=== PATIENT | female | born 1965 | race African-American/Black ===

== ENCOUNTER 2020-08-03 15:40 | Emergency (ER) | payer OTHER ==
[~2020-08-03] VITALS: Ht 175.3 cm; Wt 96.2 kg
[~2020-08-03 15:40] MED LIST: CLOTRIMAZOLE 1%15 G1 TOP; COLACE100 MG PO; DUONEB 2.5-0.5 M3 ML INH; FLEXERIL PO; IBUPROFEN 800800 M1 PO; MUCINEX TA600 MG/TA2 PO; OXYCONTIN20 M1 PO; PAXIL10 MG PO; TUSSIONEX PENN473 ML PO
[2020-08-03 16:25] LABS: ABSOLUTE NEUTROPHILS 5.5 thou/uL (1.4-8.2); BASOPHILS 0.6 % (0.0-2.0); EOSINOPHILS 3.2 % (0.0-3.0); HEMATOCRIT 38.9 % (37.0-47.0); HEMOGLOBIN 12.5 gm/dL (12.0-15.0); LYMPHOCYTES 34.9 % (24.0-44.0); MCH 28.5 pg (26.0-34.0); MCHC 32.1 g/dL (28.0-37.0); MCV 88.7 fL (80.0-100.0); PLATELET COUNT 271 thou/uL (150-400); POLYS 54.3 % (36.0-66.0); RBC 4.38 mil/uL (4.20-5.00); RDW 13.3 % (10.5-14.5); WBC 10.1 thou/uL (4.0-11.0)
[2020-08-03 16:28] LABS: ANION GAP 10 mmol/L (7-16); BUN 13 mg/dL (7-18); CHLORIDE 106 mmol/L (98-107); CO2 28 mmol/L (21-32); CREATININE 1.1 mg/dL (0.6-1.0); GLUCOSE 189 mg/dL (74-106); POTASSIUM 3.5 mmol/L (3.5-5.1); SODIUM 144 mmol/L (136-145)
[2020-08-03 19:18] LABS: ALBUMIN 3.7 g/dL (3.4-5.0); MAGNESIUM 1.7 mg/dL (1.8-2.4); SGOT 63 U/L (15-37); SGPT 72 U/L (30-65); TOTAL BILIRUBIN 0.2 mg/dL (0.2-1.0); TROPONIN-I <0.06 ng/mL (<0.06)
[2020-08-03] MEDS ORDERED: DOXYCYCLINE 10100 MG PO (19:32)
[2020-08-03] MEDS ORDERED: PREDNISONE 20 M20 MG PO (19:32)
[2020-08-03] MEDS ORDERED: VENTOLIN HFA 1818 GM INH (19:32)
[2020-08-03] MEDS ORDERED: TESSALON PERLE100 MG PO (19:32)
[2020-08-03 21:30] VITALS: BP 120/76
[2020-08-04] MEDS ORDERED: JANUMET 50-1,01 EACH PO (03:18)
[2020-08-04] MEDS ORDERED: LOSARTAN POTASS50 MG PO (03:18)
[2020-08-04] MEDS ORDERED: NORTRIPTYLINE H25 M3 PO (03:19)
[2020-08-04] MEDS ORDERED: ADVAIR 100-501 EACH INH (03:20)
[2020-08-04] MEDS ORDERED: OMEPRAZOLE40 MG PO (06:11)
[2020-08-04] MEDS ORDERED: POTASSIUM20 PO (06:11)
[2020-08-04] MEDS ORDERED: TIZANIDINE4 MG/1 TA1 PO (06:12)
--- NOTE | 2020-08-04 09:37 | EKG ---
[facility] [place] [address] ELECTROCARDIOGRAM REPORT Name: BERNARDO CALDERON [id number] Admission: 08/03/20 Attend Phys: Discharge: 08/03/20 Date of : 61 Report #: [id number] THIS REPORT FOR: cc: MILAGROS - Melony family physician/PCP MILAGROS - Melony family physician/PCP Cheko Fields MD ~ THIS REPORT FOR: //name// [facility] ED Test Date: 2020-08-03 Test Time: 16:36:32 Pat Name: BERNARDO CALDERON Department: Room: Gender: Pecan Mallow Dipper: [facility] : 1965 Requested By: Robin Blevins Order Number: [id number] MD: Cheko Fields Measurements Intervals [place] Rate: 98 P: 50 IA: 142 QRS: 11 QRSD: 118 T: 33 QT: 373 QTc: 477 Interpretive Statements Sinus rhythm Probable left atrial enlargement Incomplete right bundle branch block No previous ECG available for comparison Electronically Signed On 08-04-2020 9:36:57 CDT by Cheko Fields [email or web address] <ELECTRONICALLY SIGNED> By: Cheko Fields MD 08/04/20 0936 35 Cheko Fields MD /NICOLAS
== END 2020-08-03 21:41 | disposition home or self-care (01) ==
LOC: ER 15:40
PROVIDERS: Emergency Medicine
DX: J06.9 Acute upper respiratory infection, unspecified (principal); J45.901 Unspecified asthma with (acute) exacerbation; J04.0 Acute laryngitis; Z20.828 Contact with and (suspected) exposure to other viral communicable diseases; E11.9 Type 2 diabetes mellitus without complications; I10 Essential (primary) hypertension; E66.9 Obesity, unspecified; Z79.899 Other long term (current) drug therapy; Z88.6 Allergy status to analgesic agent; Z91.040 Latex allergy status; Z87.891 Personal history of nicotine dependence; Z68.31 Body mass index [BMI] 31.0-31.9, adult